=== PATIENT | female | born 1950 | race Hispanic/Latino ===

== ENCOUNTER 2021-06-28 11:13 | Emergency (ER) | payer OTHER ==
[~2021-06-28] VITALS: Ht 165.1 cm; Wt 99.8 kg
[~2021-06-28 11:13] MED LIST: LYRICA; METOPROLOL TART25 MG PO; PRAVASTATIN SOD20 MG PO
== END 2021-06-28 13:00 | disposition home or self-care (01) ==
LOC: ER 11:51
DX: M25.562 Pain in left knee (principal); M54.50 Low back pain, unspecified; G89.29 Other chronic pain; I10 Essential (primary) hypertension; E78.5 Hyperlipidemia, unspecified
CPT/HCPCS: 93971; 99283